=== PATIENT | male | born 1990 | race Caucasian/White ===

== ENCOUNTER 2022-07-28 08:45 | Emergency (ER) | payer BC ==
[2022-07-28] MEDS ORDERED: Ketorolac 30 MG/ML SDV IVPUSH ONE (08:58)
[2022-07-28] MEDS ORDERED: Morphine 4 MG/ML Syringe IVPUSH ONE (08:58)
== END 2022-07-28 10:00 | disposition home or self-care (01) ==
LOC: MW.ED 08:45
DX: S82.871A Displaced pilon fracture of right tibia, initial encounter for closed fracture (principal); W06.XXXA Fall from bed, initial encounter
CPT/HCPCS: 73610; 96374; 96375; 99283; J1885; J2270; 99284

== ENCOUNTER 2022-07-28 14:59 | Emergency (ER) | payer BC, OTHER | END 2022-07-28 15:51 | disposition home or self-care (01) | LOC: MW.ED 14:59 | DX: S82.201A Unspecified fracture of shaft of right tibia, initial encounter for closed fracture (principal); Z86.16 Personal history of COVID-19 | CPT/HCPCS: 29505; 99283; 99283-25 ==